=== PATIENT | female | born 1935 | race Caucasian/White ===

== ENCOUNTER 2017-01-25 19:04 | Emergency (ER) | payer MEDICARE, OTHER ==
--- NOTE | ~2017-01-25 | CR150 ---
[facility] A Service of [facility] & [facility] RADIOLOGY TEXT RESULTS PATIENT: TOHMAS CAM LOCATION: [facility] : 33 UNIT #: [id number] AGE: [address]: Kalyani Strong MD SEX: F ORDER DR: [id number] [facility] [address] [place], [place] [address] [id number] E MR#: [id number] Acc #: [id number] NAME: THOMAS CAM. : 1935 SEX: F STUDY DATE/TIME: 01/25/2017 21:23 UNIT: [facility] ROOM: STUDY DESCRIPTION: CR Hip Min 2 Views Lt Attending Physician: Kalyani Strong M.D. Ordering Physician: Kalyani Strong M.D. Primary Care Physician: Wayne Aguilar M.D. MEDICAL IMAGING REPORT This report is preliminary unless electronic signature is present EXAM Left hip HISTORY Left hip pain after falling today. FINDINGS An AP view of the pelvis and a lateral view of the left hip were obtained. The bones are normal. There is no fracture. IMPRESSION Normal left hip. Dictated by... Adam Garcia M.D. THIS IS AN ELECTRONICALLY VERIFIED REPORT Adam Garcia M.D. at 01/26/2017 5:54 AM WOJCIECH/charles TD: 01/26/2017 00:11 JOB #: [id number] MEDICAL IMAGING REPORT Page 1 of 1 COPY
--- NOTE | ~2017-01-25 | CR181 ---
[facility] A Service of [facility] & [facility] RADIOLOGY TEXT RESULTS PATIENT: THOMAS CAM LOCATION: [facility] : 33 UNIT #: [id number] AGE: [address]: Kalyani Strong MD SEX: F ORDER DR: [id number] [facility] [address] [place], [place] [address] [id number] E MR#: [id number] Acc #: [id number] NAME: THOMAS CAM. : 1935 SEX: F STUDY DATE/TIME: 01/25/2017 21:25 UNIT: [facility] ROOM: STUDY DESCRIPTION: CR Lumbar Spine 2 or 3 Views Attending Physician: Kalyani Strong M.D. Ordering Physician: Kalyani Strong M.D. Primary Care Physician: Wayne Aguilar M.D. MEDICAL IMAGING REPORT This report is preliminary unless electronic signature is present EXAM Lumbar spine 3 views HISTORY Low back pain today after fall. FINDINGS Three views lumbar spine demonstrate degenerative disc disease and moderately severe to severe degenerative disc space narrowing at all lumbar levels with moderate associated bony hypertrophic changes throughout the upper lower lumbar spine. No fracture or subluxation. Mild generalized lumbar demineralization. IMPRESSION Multilevel degenerative changes of the lumbar spine. No acute findings. Dictated by... Tiago Reza M.D. THIS IS AN ELECTRONICALLY VERIFIED REPORT Tiago Reza M.D. at 01/26/2017 11:47 AM ANASTACIA/charles TD: 01/26/2017 00:12 JOB #: [id number] MEDICAL IMAGING REPORT Page 1 of 1 COPY
[~2017-01-25 19:04] MED LIST: ANTIVERT12.5 MG PO; ASPIRIN PO; ATORVASTATIN CA10 MG PO; BACTRIM DS TABL1 TA1 PO; FOLIC ACID1 MG PO; LATANOPROST2.5 ML OS; LISINOPRIL5 MG PO; METFORMIN HCL500 M1 PO; NEURONTIN100 MG PO; NO MEDICATIONS; OMEPRAZOLE20 M1 PO
== END 2017-01-25 23:11 | disposition home or self-care (01) ==
LOC: CED 19:04
DX: S76.011A Strain of muscle, fascia and tendon of right hip, initial encounter (principal); W19.XXXA Unspecified fall, initial encounter; Y92.009 Unspecified place in unspecified non-institutional (private) residence as the place of occurrence of the external cause
CPT/HCPCS: 72100; 73502; 99284

== ENCOUNTER → 2017-02-25 | Outpatient (CLI) | payer MEDICARE, OTHER ==
--- NOTE | ~2017-02-25 | MR113 ---
[facility] A Service of [facility] & [facility] RADIOLOGY TEXT RESULTS PATIENT: THOMAS CAM LOCATION: [facility] : 33 UNIT #: [id number] AGE: [address]: DANITZA AGUILAR MD (INT MED) SEX: F ORDER DR: [id number] [address] [address] [id number] O MR#: [id number] Acc #: [id number] NAME: THOMAS CAM. : 1935 SEX: F STUDY DATE/TIME: 02/25/2017 13:06 UNIT: [facility] ROOM: STUDY DESCRIPTION: MR Lumbar Wo Contrast Attending Physician: Danitza Aguilar M.D. Referring Physician: Danitza Aguilar M.D. Ordering Physician: Danitza Aguilar M.D. Primary Care Physician: Danitza Aguilar M.D. MRI CENTER REPORT This report is preliminary unless electronic signature is present. EXAM Lumbar spine MRI without HISTORY Fall last month with chronic low back pain for years and degenerative disc disease. Patient has spinal stenosis and symptoms are worse since the fall. Pain worse to the right side, but also involves the left hip. No history of surgery or cancer. TECHNIQUE MRI of the lumbar spine performed without contrast using routine 1.5-T wide-bore imaging technique. COMPARISON There is comparison study from 03/02/2013. FINDINGS Multilevel disc desiccation and endplate spondylosis is present with loss of intervertebral disc height. Mild multilevel marrow endplate degenerative changes are present. The conus medullaris terminates at L1-2 and is normal. Marrow endplate degenerative changes are predominately type 2. At L1-2, there is a concentric disc bulging endplate spondylosis with bilateral posterolateral more focal protrusion/extrusion, worse to the left side than the right side. There is mild canal stenosis and moderate to severe left and more moderate right-sided foraminal impingement. There is [id number] facet degenerative change bilaterally. Probably some mild progression of disease since prior. At L2-3, there is bilateral facet degenerative change, at least moderate, worse to the left with concentric endplate spondylosis and disc bulging. There is more focal disc material to the left side, left STS. [facility] A Service of [facility] RADIOLOGY TEXT RESULTS PATIENT: THOMAS CAM LOCATION: [facility] : 33 UNIT #: [id number] AGE: [address]: DANITZA AGUILAR MD (INT MED) SEX: F ORDER DR: [id number] location. This includes a component disc extrusion within the left lateral recess extending slightly caudad from the disc, remaining contiguous with it and also extending into the foramen. There is severe canal stenosis, severe mass effect on left greater than right lateral recess, and [id number] bilateral foraminal narrowing. Findings not significantly changed from prior. At L3-4, bilateral facet degenerative change, fairly severe with moderate ligamentum flavum thickening. Concentric disc bulging, endplate spondylosis worse posteriorly. There is overall moderate central canal stenosis with mass effect on the bilateral lateral recesses and moderate to severe left and mild to moderate right-sided foraminal impingement. There is more focal disc material in the left inferior foramen contributing to the foraminal compromise. Findings similar to prior. At L4-5, bilateral facet degenerative change, severe right greater than left with again, only minimal grade 1 anterolisthesis of L4 on L5 secondary to the facet arthritis. There is moderate concentric desiccated disc bulging and endplate spondylosis with superimposed broad posterior extrusion. There is a more focal component of the disc extrusion centrally, remaining contiguous with the disc, extending above and below the level of the disc. This was present previously and is slightly smaller. There is mass effect on the bilateral lateral recesses, right greater than left. There is mild central canal stenosis. Foraminal narrowing is mild to moderate on the right and mild on the left. At L5-S1, there is redemonstration of moderate bilateral facet degenerative change. There is broad posterior disc protrusion with endplate spondylosis. Mild effacement of the anterior thecal sac and mild mass effect on the bilateral-lateral recesses. No significant central canal stenosis. Endplate spondylosis and disc material extends into the inferior foramina, and there is approximately moderate left and moderate to severe right-sided foraminal impingement. This is not significantly changed. IMPRESSION Redemonstration of multilevel lumbar degenerative disease, canal stenosis, and foraminal impingement. Canal stenosis is most severe at the L2-3 level. Please refer to the [id number] description of canal and foraminal impingement. On comparison study from 03/02/2013, the disc extrusion at the L4-5 level is slightly smaller. Dictated by... Magaly Ahumada M.D. THIS IS AN ELECTRONICALLY VERIFIED REPORT Magaly Ahumada M.D. at 02/27/2017 8:52 AM [facility] A Service of [facility] & [facility] RADIOLOGY TEXT RESULTS PATIENT: THOMAS CAM LOCATION: [facility] : 33 UNIT #: [id number] AGE: [address]: DANITZA AGUILAR MD (INT MED) SEX: F ORDER DR: Crystal TD: 02/26/2017 18:38 JOB #: [id number] MRI CENTER REPORT Page 1 of 1
== END | disposition home or self-care (01) ==
LOC: SMRI 12:40
DX: M48.06 Spinal stenosis, lumbar region (principal); M51.36 Other intervertebral disc degeneration, lumbar region; M51.26 Other intervertebral disc displacement, lumbar region
CPT/HCPCS: 72148